=== PATIENT | male | born 1980 | race Two or more races ===

== ENCOUNTER 2019-04-30 06:50 | Emergency (ER) | payer OTHER ==
[~2019-04-30] VITALS: Ht 193 cm; Wt 102.1 kg
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
--- NOTE | 2019-04-30 06:56 | NUR ---
BELONGINGS IN LOCKER #3
--- NOTE | 2019-04-30 06:56 | NUR ---
ED Nurse Note: pt belongings placed in locker 3
--- NOTE | 2019-04-30 06:56 | NUR ---
ED Nurse Note: breakfast tray ordered for pt. SI precautions in place. will continue to monitor pt
[2019-04-30 07:02] VITALS: BP 148/96
--- NOTE | 2019-04-30 07:10 | NUR ---
HAND-OFF: Report given to KRISTYN Vasquez.
[2019-04-30 07:12] LABS: HEMATOCRIT 45.7 % (42.0-52.0); HEMOGLOBIN 15.9 G/DL (14.2-18.0); MEAN CORPUSCULAR VOLUME 91 FL (80-99); PLATELET COUNT 253 K/UL (150-450); RED CELL DISTRIBUTION WIDTH 12.2 % (11.6-14.8); WHITE BLOOD COUNT 18.9 K/UL (4.8-10.8)
[2019-04-30 07:20] LABS: ANION GAP 12 mmol/L (5-15); BLOOD UREA NITROGEN 11 mg/dL (7-18); CALCIUM 8.3 MG/DL (8.5-10.1); CARBON DIOXIDE 23 MMOL/L (21-32); CHLORIDE 105 MMOL/L (98-107); POTASSIUM 3.6 MMOL/L (3.5-5.1); SODIUM 140 MMOL/L (136-145)
[2019-04-30 07:24] LABS: ALANINE AMINOTRANSFERASE 92 U/L (12-78); ALBUMIN 4.1 G/DL (3.4-5.0); ALKALINE PHOSPHATASE 172 U/L (46-116); ASPARTATE AMINO TRANSFERASE 91 U/L (15-37); BILIRUBIN,TOTAL 0.7 MG/DL (0.2-1.0)
--- NOTE | 2019-04-30 08:49 | NUR ---
ED Nurse Note: BREAKFAST PROVIDED TO PT. NO ACUTE DISTRESS. CALM AND COOPERATIVE. PRIMARY RN SITTER.
[2019-04-30 10:04] VITALS: BP 145/86
--- NOTE | 2019-04-30 10:12 | NUR ---
ED Nurse Note: PT REPORTS HE STILL HEARS VOICES AND ASKS IF HE CAN TAKE SEROQUEL. DR MURRY WAS NOTIFIED. WAITING F OR NEW ORDERS.
--- NOTE | 2019-04-30 10:29 | NUR ---
[facility] was called spoke w/ Vicente and documents has been faxed and received @ 0022
[2019-04-30 12:52] VITALS: BP 135/77
--- NOTE | 2019-04-30 14:12 | NUR ---
ED Nurse Note: PT IS CALM AND WITH NO DISTRESS. PRIMARY RN SITTER.
--- NOTE | 2019-04-30 16:50 | NUR ---
ED Nurse Note: PT WAS PROVIDE DWITH DINNER. COLLECTED CBC SPECIMEN THEN SENT.
[2019-04-30 17:00] VITALS: BP 138/70
[2019-04-30 17:34] LABS: BASOPHILS % (AUTO) 0.7 % (0.0-2.0); EOSINOPHILS % (AUTO) 1.7 % (0.0-3.0); HEMATOCRIT 38.8 % (42.0-52.0); HEMOGLOBIN 13.3 G/DL (14.2-18.0); LYMPHOCYTES % (AUTO) 22.4 % (20.0-45.0); MEAN CORPUSCULAR VOLUME 92 FL (80-99); MONOCYTES % (AUTO) 5.1 % (1.0-10.0); NEUTROPHILS % (AUTO) 70.1 % (45.0-75.0); PLATELET COUNT 195 K/UL (150-450); RED BLOOD COUNT 4.21 M/UL (4.70-6.10); RED CELL DISTRIBUTION WIDTH 12.6 % (11.6-14.8); WHITE BLOOD COUNT 12.4 K/UL (4.8-10.8)
[2019-04-30 17:37] LABS: APPEARANCE,URINE CLEAR; BILIRUBIN, URINE NEGATIVE (NEGATIVE); GLUCOSE, URINE (UA) NEGATIVE (NEGATIVE); KETONES,URINE NEGATIVE (NEGATIVE); LEUKOCYTE ESTERASE ,URINE NEGATIVE (NEGATIVE); NITRITE,URINE NEGATIVE (NEGATIVE); PH,URINE 5 (4.5-8.0); PROTEIN,URINE 1+ (NEGATIVE); UROBILINOGEN,URINE 1 MG/DL (0.0-1.0)
[2019-04-30 17:40] LABS: COLOR,URINE YELLOW
--- NOTE | 2019-04-30 19:10 | NUR ---
ED Nurse Note: PT IS ASKING FOR HIS NIGHT MEDICATION SEROQUEL 200MG. DR HORTON NOTIFIED.
[2019-04-30] MEDS ORDERED: QUEtiapine 200mg tab ORAL ONE (19:45)
[2019-04-30 20:06] VITALS: BP 126/76
--- NOTE | 2019-04-30 21:58 | NUR ---
ED Nurse Note: REPORT GIVEN TO PILI.
[2019-04-30 22:15] VITALS: BP 132/77
--- NOTE | 2019-04-30 22:33 | NUR ---
[facility] ambulance is here now to transport patient.
--- NOTE | 2019-04-30 22:45 | NUR ---
ED Nurse Note: PT VERBALIZED TO PRIMARY RN THAT HE IS ON PAROLE AND THAT [facility] WILL NOT BE ABLE TO TAKE HIM. ER CHARGE NURSE AND ERMD WERE NOTIFIED. CALLED [facility] AND SPOKE TO ELLIOTT SIMONS AND AVA ABOUT PT BEING ON PAROLE. PLACEMENT WAS CANCELLED.
--- NOTE | 2019-04-30 22:58 | NUR ---
In a last minute while ambulance is here to transport patient verbalized to his nurse that he is on a parole. [facility] contacted- transfer declined.
--- NOTE | 2019-04-30 23:30 | NUR ---
Patient approached nurses station stating that his name is not Cody, is Kee. Registration notified, information updated.
--- NOTE | 2019-04-30 23:30 | NUR ---
ED Nurse Note: Received report from KRISTYN Vasquez. patient is calm and is sleeping in room. complains of no distress at this time
--- NOTE | 2019-04-30 23:39 | NUR ---
Spoke with Officer Dmitry jerome # [id number] states that the patient is not on probation or parole. spoke with Kolby from [facility], states that the bed is still available. will arrange transport
--- NOTE | 2019-05-01 00:12 | NUR ---
Called back Officer Vitaliy at [phone] due to patient stating that his name was RONNIE Vargas. RONNIE Lockhart is in parole till 2020. informed registration to change name
--- NOTE | 2019-05-01 00:27 | NUR ---
ED Nurse Note: Patient sleeping in bed with no distress
--- NOTE | 2019-05-01 00:42 | NUR ---
Patient's welfare officer: Jonathan Amezcua [phone]
[2019-05-01 00:45] VITALS: BP 128/72
--- NOTE | 2019-05-01 01:22 | NUR ---
[facility] called back stating [facility] cannot accept patient, patient need to re referred back to his parol officer.
--- NOTE | 2019-05-01 01:28 | NUR ---
Called patient's surveillance dual rate officer at [phone]. no answer. left voicemail
--- NOTE | 2019-05-01 02:10 | NUR ---
Rona called from [facility] with patient being accepted at [place] but when found out that patient is in porol declined the acceptance and states she will get in touch with her refining supervisor and call us back.
--- NOTE | 2019-05-01 02:17 | NUR ---
Rona called back from [facility] stating that FIRST we need to get OK from porol officer then patient will go to [facility], Accepting doctors and . Call report [phone] look for [place] Then call for transport.
--- NOTE | 2019-05-01 02:21 | NUR ---
Left 2nd voicemail to patients welfare officer.
--- NOTE | 2019-05-01 02:25 | NUR ---
Rona called back - denied the patient due to parole status.
--- NOTE | 2019-05-01 02:39 | NUR ---
ED Nurse Note: Patient ambulated to the bathroom. will continue to monitor
[2019-05-01 03:16] VITALS: BP 133/75
--- NOTE | 2019-05-01 03:34 | NUR ---
ED Nurse Note: Called Jonathan Amezcua at [phone]. no response
[2019-05-01 05:29] VITALS: BP 136/72
--- NOTE | 2019-05-01 05:29 | NUR ---
ED Nurse Note: Patient sleeping in bed with no distress. will wait for further orders
--- NOTE | 2019-05-01 05:35 | NUR ---
2ND PHONE NUMBER [phone] contacted 2nd number. no response. 1st number was given by [employer] dispatch ending in [phone]
--- NOTE | 2019-05-01 06:59 | NUR ---
ED Nurse Note: PAtient in bed sleeping. in no distress at this time
--- NOTE | 2019-05-01 07:04 | NUR ---
HAND-OFF: Report given to KRISTYN Meek.
--- NOTE | 2019-05-01 07:05 | NUR ---
ED Nurse Note: Received pt from KRISTYN Quiroga. patient is sleeping in bed. Pt in no acute distress.
--- NOTE | 2019-05-01 07:45 | NUR ---
ED Nurse Note: Called and no answer left a voicemail for Jonathan Diez to call back to get the plan for transfer.
--- NOTE | 2019-05-01 08:58 | NUR ---
ED Nurse Note: patient recieved breakfast tray. Patient is calm and cooperative. No acute distress at this time.
--- NOTE | 2019-05-01 09:53 | NUR ---
ED Nurse Note: Patient is laying comfortably in bed, sleeping no acute distress noted at this time.
[2019-05-01 12:18] VITALS: BP 128/72
--- NOTE | 2019-05-01 12:18 | NUR ---
ER DISCHARGE NOTE: Patient is cleared to be discharged per ROBINA Coy. Psychiatric doctor was unable to come and see patient , pt is aox4, on room air, with stable vital signs. pt was given dc instructions, pt was able to verbalize understanding, pt id band and iv site removed without complications. pt is able to ambulate with steady gait. pt took all belongings. Gave patient mental health resources to follow up mental health care.
--- NOTE | 2019-05-03 10:04 | NUR ---
Pts [employer] home [employer] liaison officer Goldie called back ER and stated that pt had violated parole for leaving facility in [place], and if pt should check back in [employer] home [employer] liaison officer needs to be reached, but will not be available during weekends
== END 2019-05-01 12:18 | disposition home or self-care (01) ==
LOC: EDBD 06:50 → EMR 07:38
DX: R07.9 Chest pain, unspecified (principal); R45.851 Suicidal ideations; F32.9 Major depressive disorder, single episode, unspecified
CPT/HCPCS: 36415; 80053; 80307; 81001; 84484; 85007; 85025; G0480; G0481; Z7502; 99284